=== PATIENT | male | born 1960 | race Caucasian/White ===

== ENCOUNTER 2016-07-25 15:27 | Emergency (ER) | payer BC ==
[2016-07-25] MEDS ORDERED: Aspirin 81 MG Tab.Chew PO ONE (15:39)
[2016-07-25] MEDS: Nitroglycerin 0.4 MG Tab.SL SL PRN ×2 (15:44→15:53)
--- NOTE | 2016-07-25 15:44 | EDM.PDOC ---
[id number] CHEST PAIN Time Seen by Provider: 07/25/16 15:40 Source: Reports: Patient, Family History Limitations: Reports: No limitations - History of Present Illness INITIAL COMMENTS - FREE TEXT/NARRATIVE: pt had a acute onset of pain in the left chest. He took a sauna and he got very warm and he then developed the chest pain. He then became quite sweaty. He gave a history of a couple of episoded of chest pain during the week. He saw Dr Lester at the clinic and he was scheduled for a stress test on the . Timing/Duration: Reports: Minutes:, Getting worse Severity: moderate Location, General: Reports: chest Associated Symptoms: Reports: shortness of breath, other ( pt has had some [ previous episodes of chest pain during the week. He was seen at the clinic and he was scheduled for a stress test. ) - Related Data Allergies/ADRs: Allergies Allergy/AdvReac Type Severity Reaction Status Date / Time No Known Allergies Allergy Verified 07/25/16 15:36 Home Meds: Home Meds Aspirin [Halfprin] 81 mg PO DAILY 07/24/16 [History] Ibuprofen 200 mg PO Q6H PRN 07/24/16 [History] Past Medical History Musculoskeletal History: Reports: Other (see below) Other Musculoskeletal History: Right knee bursitis. - Past Surgical History GI Surgical History: Reports: Hernia repair/other Neurological Surgical History: Reports: Lumbar spine Social & Family History - Tobacco Use Smoking Status *Q: Never Smoker - Alcohol Use Days Per Week of Alcohol Use: 0 - Recreational Drug Use Recreational Drug Use: Yes Drug Use in Last 12 Months: No Recreational Drug Type: Reports: Marijuana/Hashish Recreational Drug Use Frequency: Not Used In Over 1 Year ED ROS GENERAL - Review of Systems Review Of Systems: See Below Constitutional: Reports: no symptoms HEENT: Reports: No symptoms Respiratory: Reports: Shortness of Breath Cardiovascular: Reports: Chest pain, Palpitations Endocrine: Reports: no symptoms : Reports: no symptoms Musculoskeletal: Reports: other ( left sided chest pain and pain in both arms. ) Skin: Reports: no symptoms Neurological: Reports: No Symptoms Psychiatric: Reports: Hallucinations ED EXAM, GENERAL - Physical Exam Exam: See Below Free Text/Narrative:: pt arrived with chest pain going to his back. he received asa and nitro and he suddenly went into vfib. he had a seizure during that time. He was shocked and 2 min of cpr was completed his rhythm was assessed and he was in sinus rhythm. he started to wake up and he was breathing good. He was very tense. he was given .25 of ativan. amiroderone 300mg bolus was started and he was give a aminroderone drip was started. He stayed in a sinus rhythm and was stable. A repeat ekg was obtained and he had more anterior st changes. a helicopter was activatyed and he was bolused with heparin 4000 units, and plavix 600mg. was given po. he was given morphine 4 mg iv for pain. Exam Limited By: No limitations General Appearance: alert, anxious Ears: normal TMs Nose: normal inspection Throat/Mouth: Normal inspection Head: atraumatic Neck: normal inspection Respiratory/Chest: no respiratory distress Cardiovascular: regular rate, rhythm GI/Abdominal: soft, non tender (Male) Exam: Deferred Rectal (Males) Exam: Deferred Extremities: normal inspection Neurological: alert, oriented, normal cognition Course - Vital Signs Last Recorded V/S: Last Vital Signs Temp 35.7 C 07/25/16 15:45 Pulse 78 07/25/16 16:54 Resp 16 07/25/16 16:25 BP 110/73 07/25/16 16:54 Pulse Ox 96 07/25/16 16:54 - Orders/Labs/Meds Orders: Active Orders 24 hr Category Date Time Status EKG Documentation Completion [RC] ASDIRECTED Care 07/25/16 15:39 Active EKG 12 Lead [EK] Routine Ther 07/25/16 15:39 Ordered Labs: Laboratory Tests 07/25/16 07/25/16 07/25/16 Range/Units 15:43 15:43 15:43 WBC 10.0 (4.5-11.0) K/uL RBC 5.50 (4.30-5.90) M/uL Hgb 16.3 H (12.0-15.0) g/dL Hct 46.4 (40.0-54.0) % MCV 84 (80-98) fL MCH 30 (27-31) pg MCHC 35 (32-36) % Plt Count 229 (150-400) K/uL Neut % (Auto) 63 (36-66) % Lymph % (Auto) 26 (24-44) % Bacon % (Auto) 10 H (2-6) % Eos % (Auto) 2 (2-4) % Baso % (Auto) 0 (0-1) % APTT (27.0-36.0) sec Sodium 144 (140-148) mmol/L Potassium 3.6 (3.6-5.2) mmol/L Chloride 107 (100-108) mmol/L Carbon Dioxide 24 (21-32) mmol/L Anion Gap 13.3 (5.0-14.0) mmol/L BUN 25 H (7-18) mg/dL Creatinine 1.1 (0.8-1.3) mg/dL Est Cr Clr Drug Dosing 88.22 mL/min Estimated GFR (MDRD) > 60 (>60) Glucose 118 H (74-106) mg/dL Calcium 8.9 (8.5-10.1) mg/dL Total Bilirubin 0.9 (0.2-1.0) mg/dL AST 39 H (15-37) U/L ALT 56 (12-78) U/L Alkaline Phosphatase 131 H (46-116) U/L Creatine Kinase 256 (39-308) U/L Troponin I 0.344 H* (0.000-0.056) ng/mL Total Protein 8.4 H (6.4-8.2) g/dL Albumin 4.7 (3.4-5.0) g/dL Globulin 3.7 H (2.3-3.5) g/dL Albumin/Globulin Ratio 1.3 (1.2-2.2) 07/25/16 Range/Units 16:20 WBC (4.5-11.0) K/uL RBC (4.30-5.90) M/uL Hgb (12.0-15.0) g/dL Hct (40.0-54.0) % MCV (80-98) fL MCH (27-31) pg MCHC (32-36) % Plt Count (150-400) K/uL Neut % (Auto) (36-66) % Lymph % (Auto) (24-44) % Bacon % (Auto) (2-6) % Eos % (Auto) (2-4) % Baso % (Auto) (0-1) % APTT 24.6 L (27.0-36.0) sec Sodium (140-148) mmol/L Potassium (3.6-5.2) mmol/L Chloride (100-108) mmol/L Carbon Dioxide (21-32) mmol/L Anion Gap (5.0-14.0) mmol/L BUN (7-18) mg/dL Creatinine (0.8-1.3) mg/dL Est Cr Clr Drug Dosing mL/min Estimated GFR (MDRD) (>60) Glucose (74-106) mg/dL Calcium (8.5-10.1) mg/dL Total Bilirubin (0.2-1.0) mg/dL AST (15-37) U/L ALT (12-78) U/L Alkaline Phosphatase (46-116) U/L Creatine Kinase (39-308) U/L Troponin I (0.000-0.056) ng/mL Total Protein (6.4-8.2) g/dL Albumin (3.4-5.0) g/dL Globulin (2.3-3.5) g/dL Albumin/Globulin Ratio (1.2-2.2) Meds: Medications Discontinued Medications Generic Name Dose Route Start Last Admin Trade Name Freq PRN Reason Stop Dose Admin Amiodarone HCl 300 mg 07/25/16 16:00 07/25/16 16:00 Cordarone IVPUSH 07/25/16 16:01 300 mg ONETIME ONE Administration Aspirin 324 mg 07/25/16 15:39 07/25/16 15:43 Aspirin PO 07/25/16 15:40 324 mg ONETIME ONE Administration Clopidogrel Bisulfate 600 mg 07/25/16 16:19 07/25/16 16:24 Plavix PO 07/25/16 16:20 600 mg ONETIME ONE Administration Clopidogrel Bisulfate Confirm 07/25/16 16:20 07/25/16 17:06 Plavix Administered 07/25/16 16:21 Not Given Dose 600 mg .ROUTE .STK-MED ONE Heparin Sodium (Porcine) 4,000 units 07/25/16 16:20 07/25/16 17:04 Heparin Sodium IVPUSH 07/25/16 16:21 4,000 units ONETIME ONE Administration Heparin Sodium (Porcine) Confirm 07/25/16 16:20 07/25/16 17:07 Heparin Sodium Administered 07/25/16 16:21 Not Given Dose 5,000 units .ROUTE .STK-MED ONE Amiodarone HCl 450 mg/ 250 mls @ 33.33 mls/hr 07/25/16 16:15 07/25/16 16:07 Dextrose/Water IV 1 mg/min ASDIRECTED NELSON 33.33 mls/hr Protocol Administration 1 MG/MIN Lorazepam Confirm 07/25/16 16:01 07/25/16 17:20 Ativan Administered 07/25/16 16:02 Not Given Dose 2 mg .ROUTE .STK-MED ONE Lorazepam 0.25 mg 07/25/16 16:07 07/25/16 16:07 Ativan IVPUSH 07/25/16 16:08 0.25 mg ONETIME ONE Administration Morphine Sulfate Confirm 07/25/16 16:16 07/25/16 17:25 Morphine Administered 07/25/16 16:17 Not Given Dose 2 mg .ROUTE .STK-MED ONE Morphine Sulfate Confirm 07/25/16 16:17 07/25/16 17:25 Morphine Administered 07/25/16 16:18 Not Given Dose 2 mg .ROUTE .STK-MED ONE Morphine Sulfate Confirm 07/25/16 16:31 07/25/16 17:24 Morphine Administered 07/25/16 16:32 Not Given Dose 2 mg .ROUTE .STK-MED ONE Morphine Sulfate 2 mg 07/25/16 16:10 07/25/16 16:10 Morphine IVPUSH 07/25/16 16:11 2 mg ONETIME ONE Administration Morphine Sulfate 2 mg 07/25/16 16:16 07/25/16 16:16 Morphine IVPUSH 07/25/16 16:17 2 mg ONETIME ONE Administration Morphine Sulfate 2 mg 07/25/16 16:30 07/25/16 16:30 Morphine IVPUSH 07/25/16 16:31 2 mg ONETIME ONE Administration Nitroglycerin 0.4 mg 07/25/16 15:40 07/25/16 15:53 Nitrostat SL 07/25/16 15:51 0.4 mg Q5M PRN Administration Chest Pain Ondansetron HCl 4 mg 07/25/16 16:10 07/25/16 16:10 Zofran IVPUSH 07/25/16 16:11 4 mg ONETIME ONE Administration - Re-Assessments/Exams Free Text/Narrative Re-Assessment/Exam: 07/25/16 16:37 cardiac enzymes were elevated. he was shocked and his rhythm was stable. he left in stable condition on a amiroderone drip running. 07/26/16 07:38 Departure - Departure Time of Disposition: 16:40 Disposition: DC/Tfer to Acute Hospital 02 Reason for Transfer *Q: Primary PCI Indicated Condition: fair Clinical Impression: Acute [place], Ventricular fibrillation Referrals: Teodoro Lester MD [Primary Care Provider] - Forms: ED Department Discharge Care Plan Goals: transfer to [facility] - My Orders Last 24 Hours: My Active Orders 07/25/16 15:39 EKG Documentation Completion [RC] ASDIRECTED EKG 12 Lead [EK] Routine - Assessment/Plan Last 24 Hours: My Active Orders 07/25/16 15:39 EKG Documentation Completion [RC] ASDIRECTED EKG 12 Lead [EK] Routine
[2016-07-25] MEDS ORDERED: Amiodarone 150 MG/3 ML SDV IVPUSH ONE (16:00)
[2016-07-25] MEDS ORDERED: Amiodarone 300 MG in Dextrose 5% in Water 100 ML IV ONE ×2 (16:00)
[2016-07-25] MEDS ORDERED: LORazepam 2 MG/ML MDV ONE (16:01)
[2016-07-25] MEDS ORDERED: LORazepam 2 MG/ML MDV IVPUSH ONE (16:07)
[2016-07-25] MEDS ORDERED: Morphine 2 MG/ML Syringe IVPUSH ONE ×3 (16:10→16:30)
[2016-07-25] MEDS ORDERED: Ondansetron 4 MG/2 ML SDV IVPUSH ONE (16:10)
[2016-07-25] MEDS ORDERED: Morphine 2 MG/ML Syringe ONE ×3 (16:16→16:31)
[2016-07-25] MEDS ORDERED: Clopidogrel 75 MG Tab PO ONE (16:19)
[2016-07-25] MEDS ORDERED: Clopidogrel 75 MG Tab ONE (16:20)
[2016-07-25] MEDS ORDERED: Heparin Sodium 5,000 Units/ML Vial ONE (16:20)
[2016-07-25] MEDS ORDERED: Heparin Sodium 5,000 Units/ML Vial IVPUSH ONE (16:20)
--- NOTE | 2016-07-25 17:09 | PCM.CONS ---
H&P History of Present Illness - General Date of Service: 07/25/16 Source of Information: Patient, Family, Provider History Limitations: Reports: No limitations - History of Present Illness Initial Comments - Free Text/Narative: This patient is a 55-year-old gentleman who is called to see in the emergency department for assistance in management after CPR and defibrillation. He presented to the emergency room with a history of one hour of chest pain. After arriving in the emergency department was given aspirin and one sublingual nitroglycerin. Initial EKG did not show acute ST segment elevation. He was given a second nitroglycerin after the first decrease the pain moderately, shortly thereafter he was noted to become unresponsive and was in ventricular fibrillation on the monitor. He was defibrillated and given CPR for 2 minutes on rhythm she was found to be back in sinus rhythm. Followup EKG did document ST segment elevation in the septal leads. He was loaded with IV amiodarone 300 mg and started on an amiodarone drip at 1 mg per minute. IV fluids were initiated and he was given morphine for pain. He was given a loading dose of heparin 4000 units and 600 mg of oral Plavix. chest Pain Score (Numeric/FACES): 6 - Related Data Allergies/Adverse Reactions: Allergies Allergy/AdvReac Type Severity Reaction Status Date / Time No Known Allergies Allergy Verified 07/25/16 15:36 Home Medications: Home Meds Aspirin [Halfprin] 81 mg PO DAILY 07/24/16 [History] Ibuprofen 200 mg PO Q6H PRN 07/24/16 [History] Past Medical History Musculoskeletal History: Reports: Other (see below) Other Musculoskeletal History: Right knee bursitis. - Past Surgical History GI Surgical History: Reports: Hernia repair/other Neurological Surgical History: Reports: Lumbar spine Social & Family History - Tobacco Use Smoking Status *Q: Current Status Unknown - Alcohol Use Days Per Week of Alcohol Use: 0 - Recreational Drug Use Recreational Drug Use: No Drug Use in Last 12 Months: No Recreational Drug Type: Reports: Marijuana/Hashish Recreational Drug Use Frequency: Not Used In Over 1 Year H&P Review of Systems - Review of Systems: Review Of Systems: See Below Pulmonary: Reports: No Symptoms Cardiovascular: Reports: chest pain, lightheadedness. Denies: dyspnea on exertion, orthopnea, PND, edema Exam - Exam Exam: See Below - Vital Signs Vital Signs: Last Vital Signs Temp 96.2 F 07/25/16 15:45 Pulse 78 07/25/16 16:54 Resp 16 07/25/16 16:10 BP 110/73 07/25/16 16:54 Pulse Ox 96 07/25/16 16:54 Weight: 265 lb - Exam Quality Assessment: supplemental oxygen General: alert, oriented, severe distress - Patient Data Lab Results last 24 hrs: Laboratory Results - last 24 hr 07/25/16 07/25/16 07/25/16 Range/Units 15:43 15:43 15:43 WBC 10.0 (4.5-11.0) K/uL RBC 5.50 (4.30-5.90) M/uL Hgb 16.3 H (12.0-15.0) g/dL Hct 46.4 (40.0-54.0) % MCV 84 (80-98) fL MCH 30 (27-31) pg MCHC 35 (32-36) % Plt Count 229 (150-400) K/uL Neut % (Auto) 63 (36-66) % Lymph % (Auto) 26 (24-44) % Bremer % (Auto) 10 H (2-6) % Eos % (Auto) 2 (2-4) % Baso % (Auto) 0 (0-1) % Sodium 144 (140-148) mmol/L Potassium 3.6 (3.6-5.2) mmol/L Chloride 107 (100-108) mmol/L Carbon Dioxide 24 (21-32) mmol/L Anion Gap 13.3 (5.0-14.0) mmol/L BUN 25 H (7-18) mg/dL Creatinine 1.1 (0.8-1.3) mg/dL Est Cr Clr Drug Dosing 88.22 mL/min Estimated GFR (MDRD) > 60 (>60) Glucose 118 H (74-106) mg/dL Calcium 8.9 (8.5-10.1) mg/dL Total Bilirubin 0.9 (0.2-1.0) mg/dL AST 39 H (15-37) U/L ALT 56 (12-78) U/L Alkaline Phosphatase 131 H (46-116) U/L Creatine Kinase 256 (39-308) U/L Troponin I 0.344 H* (0.000-0.056) ng/mL Total Protein 8.4 H (6.4-8.2) g/dL Albumin 4.7 (3.4-5.0) g/dL Globulin 3.7 H (2.3-3.5) g/dL Albumin/Globulin Ratio 1.3 (1.2-2.2) Result Diagrams: 07/25/16 15:43 07/25/16 15:43 Consult PN Assessment/Plan Procedures: Procedures ASSAY OF TROPONIN QUANT (04/17/15) COMPLETE CBC W/AUTO DIFF WBC (04/17/15) COMPREHEN METABOLIC PANEL (04/17/15) CT HEAD/BRAIN W/O DYE (04/17/15) DRAIN/INJ JOINT/BURSA W/O US (09/27/15) EMERGENCY DEPT VISIT (04/17/15) EMERGENCY DEPT VISIT (07/16/13) GAIT TRAINING THERAPY (01/16/16) MANUAL THERAPY 1/> REGIONS (01/16/16) MRI JNT OF LWR EXTRE W/O DYE (09/03/15) NEEDLE LOCALIZATION BY XRAY (09/27/15) PT EVALUATION (12/16/15) ROUTINE VENIPUNCTURE (04/17/15) THER/PROPH/DIAG INJ SC/IM (07/16/13) THERAPEUTIC EXERCISES (02/13/16) X-RAY EYE FOR FOREIGN BODY (09/03/15) Problem List Initiated/Reviewed/Updated: Yes Plan: ASSESSMENT AND RECOMMENDATIONS ACUTE ST SEGMENT ELEVATION MYOCARDIAL INFARCTION-complicated by ventricular fibrillation -Amiodarone continuous infusion following a 300 mg load -Aspirin 325 mg -IV fluids -IV morphine -IV heparin 4000 units -Plavix 600 mg by mouth -Emergency air transfer to radiographer cardiac catheterization at [facility] VENTRICULAR FIBRILLATION -Amiodarone as above 40 minutes of critical care time were spent in the direct care and management of this patient in the emergency room prior to transfer. Requesting Provider: NUSRAT Date Consult Requested: 07/25/16 Reason for Consult: Medical care following cardiac arrest
[2016-07-26 07:28] VITALS: BP 132/77
== END 2016-07-25 16:35 ==
LOC: JP.ED 15:27
DX: I21.3 ST elevation (STEMI) myocardial infarction of unspecified site (principal); I49.01 Ventricular fibrillation; F17.200 Nicotine dependence, unspecified, uncomplicated; Z79.82 Long term (current) use of aspirin
CPT/HCPCS: 36415; 80053; 82550; 84484; 85025; 85730; 93005; 96365; 96375; 99285; A9270; J0282; J1644; J2060; J2270; J2405; J7060